=== PATIENT | female | born 1950 | race Caucasian/White ===

== ENCOUNTER 2017-07-26 05:28 | Day surgery (SDC) | payer MEDICARE, OTHER ==
[~2017-07-26] VITALS: Ht 154.9 cm; Wt 96.4 kg
[2017-07-26] MEDS ORDERED: IOHEXOL 350 MG/ML 50 ML BTL (for Cath Lab) OTHER ONE (05:29)
[2017-07-26] MEDS ORDERED: IOHEXOL 350 MG/ML 100 ML BTL (for Cath Lab) OTHER ONE (05:29)
[2017-07-26] MEDS ORDERED: ASPI-516 CHEW (05:47)
[2017-07-26] MEDS ORDERED: MELO15TA20 PO (05:47)
[2017-07-26] MEDS ORDERED: OMEGCAP PO (05:47)
[2017-07-26] MEDS ORDERED: LISI10TA PO (05:47)
[2017-07-26] MEDS ORDERED: FERR325T18 PO (05:47)
[2017-07-26] MEDS ORDERED: SULF500T3 PO (05:47)
[2017-07-26] MEDS ORDERED: GABA300C5 PO (05:47)
[2017-07-26] MEDS ORDERED: AMLO5TAB2 PO (05:47)
[2017-07-26] MEDS ORDERED: FOLI800T PO (05:47)
[2017-07-26] MEDS ORDERED: ATOR80TA45 PO (05:47)
[2017-07-26] MEDS ORDERED: INFL100P (05:47)
[2017-07-26] MEDS ORDERED: OMEP20TA93 PO (05:47)
[2017-07-26] MEDS ORDERED: PHEN-524 PO (05:47)
[2017-07-26] MEDS ORDERED: CITA40TA4 PO (05:47)
[2017-07-26] MEDS ORDERED: METO50TA PO (05:47)
[2017-07-26] MEDS ORDERED: ISOS30TA3 PO (05:47)
[2017-07-26] MEDS ORDERED: MULTTAB67 PO (05:47)
[2017-07-26] MEDS ORDERED: VITA250T3 PO (05:47)
[2017-07-26] MEDS ORDERED: NS 1000P @30 MLS/HR (KVO) IV SCH (06:00)
[2017-07-26] MEDS ORDERED: ASPIRIN 325 MG TAB PO SCH (06:00)
[2017-07-26 06:09] VITALS: BP 156/77; PULSE 77; RESP 18; TEMP 98.4; O2SAT 94
[2017-07-26] MEDS ORDERED: ASPIRIN 81 MG CHEW TAB ONE (06:13)
[2017-07-26 06:18] LABS: AUTOMATED NEUTROPHIL # 4.4 TH/MM3 (1.8-7.7); BASOPHIL % 0.4 % (0.0-2.0); EOSINOPHIL # 0.1 TH/MM3 (0-0.4); EOSINOPHIL % 1.4 % (0.0-4.0); HEMATOCRIT 33.4 % (35.0-46.0); LYMPH % 32.4 % (9.0-44.0); LYMPHOCYTE # 2.5 TH/MM3 (1.0-4.8); MEAN CELL VOLUME 75.4 FL (80.0-100.0); MEAN CORPUSCULAR HEMOGLOBIN 24.7 PG (27.0-34.0); MEAN CORPUSCULAR HGB CONC 32.8 % (32.0-36.0); MEAN PLATELET VOLUME 8.7 FL (7.0-11.0); MONO % 8.4 % (0.0-8.0); MONOCYTE # 0.6 TH/MM3 (0-0.9); NEUT % 57.4 % (16.0-70.0); PLATELET COUNT 231 TH/MM3 (150-450); RED BLOOD COUNT 4.43 MIL/MM3 (4.00-5.30); RED CELL DISTRIBUTION WIDTH 16.3 % (11.6-17.2); WHITE BLOOD COUNT 7.7 TH/MM3 (4.0-11.0)
[2017-07-26 06:31] LABS: INTERNATIONAL NORMALIZED RATIO 1.1 RATIO; PROTHROMBIN TIME - PATIENT 11.6 SEC (9.8-11.6)
[2017-07-26 06:32] LABS: CALCIUM 9.2 MG/DL (8.5-10.1); CREATININE 0.74 MG/DL (0.50-1.00)
[2017-07-26] MEDS ORDERED: HEPARIN-NS/PF INJ 1,000 ML ONE (06:46)
[2017-07-26] MEDS ORDERED: HEPARIN SODIUM - IV 10,000 UNITS/10 ML VIAL ONE (07:11)
[2017-07-26] MEDS ORDERED: MIDAZOLAM HCL 2 MG/2 ML VIAL ONE (07:11)
[2017-07-26] MEDS ORDERED: VERAPAMIL HCL 5 MG/2 ML VIAL ONE (07:11)
[2017-07-26] MEDS ORDERED: TICAGRELOR 90 MG TAB PO ONE (08:59)
--- NOTE | 2017-07-26 09:12 | CATHPROC ---
[facility] HIS Report Study Information Study Number Admission Scheduled Start Study Start [id number] Jul 26 2017 5:28AM 07/26/2017 Jul 26 2017 7:08AM [place] Service Cardiac Catheterization Admit Source Facility Department Other [facility] - Plant Tender Physician and Clinical Staff Initial MD Davidson, Major Cert Occupational Therapy Assterasmo Glass RN, Remigio Swanson cathlab, cathlab Recorder Harsh Dunn RCIS(BS) Scrub Maddi Green,RT(R) Procedures Performed Procedure Location (Site) Vessel Name Coronary Angiograms LCA Left Coronary Coronary Angiograms RCA Right Coronary Drug Eluting Inflatio OM1 Mid CIRC Drug Eluting Inflatio RCA Mid Right Coronary L Heart Cath PTCA RCA Mid Right Coronary Wire insertion CIRC Mid CIRC Wire insertion Radial (left) Radial Art. Equipment Time Hand Ironer Description Size Mfg Part Number Used/Scraped [id number] 08:05 [employer] WIRE, ASAHI PROWATER 180CM 180CM Used *[id number] WIRE, BALANCE MIDDLEWEIGHT [id number] 08:21 [employer] 190CM Used 190CM *[id number] WIRE, BALANCE MIDDLEWEIGHT [id number] 08:48 [employer] 190CM Used 190CM *[id number] TRANSDUCER, TRUWAVE [id number] 07:11 V[employer]EG[employer] IQBAL * Used W/STOCKCOCK *[id number] 670-130-00 *[id number] 670-034-00 *0730216 670-034-00 *4198564 534-521T *[id number] 534-521T *5161502 670-052-00 *[id number] 838539 07:11 MALLINCKROD[employer] SYRINGE, ANGIOMAT 150ML 150ML *[id number] Used 2SUB [id number] 07:11 [email or web address] INDUSTRIES PACK, CCL CUSTOM * Used *[id number] 07:11 [employer] SUPPORT, ARTERIAL ADULT 31040 *[id number] Used [id number] 07:11 MED[employer] PACER PEN, SKIN DUAL W/ RULER * Used *[id number] 08:32 [employer] BALLOON, 3.0 X 12MM EUPHORA 12MM Used *[id number] [id number] 08:01 [employer] JL 4.0 DXTERITY CATHETER FR 5 Used *[id number] 08:52 [employer] STENT, 2.75 15MM ROSA M 2.75 15MM Used *[id number] 08:36 [employer] STENT, 3.5 15MM ROSA M 3.5 15MM Used *[id number] [id number] 08:20 [employer] MEDICAL 30 FERNANDA INDEFLATOR Used *[id number] BAND, RADIAL COMPRESSION TR [id number] 08:59 [employer] MEDICAL 29CM Used LARGE 29 *7964901 [id number] 07:11 [employer] WIRE, EXCHANGE 260CM 3MMJ 260CM Used *[id number] 07:11 [employer] MANIFOLD, 4 PORT * Used *[id number] 07:11 [employer] OMNIPAQUE, 350 MG, 100ML 100ML [id number] Used [id number] 07:11 [employer] BLANKET,WARM AIR CCL * Used *[id number] 07:11 [employer] JELCO NEEDLE 4056 *7864718 Used SHEATH, FR6 TRANSRADIAL [id number] 07:11 [employer] FR 6 Used SLENDER 10CM *[id number] Equipment Model, Serial, Lot Number and Expiration Data Description Model Number Serial Number Lot Number Expiration Date JL 4.0 DXTERITY CATHETER [id number] 02-24-2020 STENT, 2.75 15MM ROSA M [id number] 03-16-2019 STENT, 3.5 15MM ROSA M [id number] 01-18-2019 History: Current Medications Medication Dosage/Unit Route Frequency Last Date/Time Taken Statins (any) Beta Arya ASA History: Allergies Allergy Reaction No Known Allergies History: Risk Factors Family History of Hypertension Dyslipidemia Previous GA Previous Heart Failure Premature CAD Yes No No No No Prior Valve Prior PCI Prior CABG Surgery No No No Cerebrovascular Peripheral Artery Chronic Lung On Dialysis Diabetes Disease Disease Disease No Yes No Yes No History: Stress Tests Stress or Imaging Studies Performed Yes Standard Exercise Stress Test No Stress Echo No Stress Test SPECT Stress Test SPECT Result Stress Test SPECT Ischemia Risk/Extent Yes Positive Intermediate Stress Test CMR No Cardiac CTA Coronary Calcium Score No No History: Other Disease Selection Items HTN History: Other Current Smoker Method Quit Packs a Day Years Used Pack Years No Cigarettes 20 Years Ago 2 25 50 Labs Hgb (g/dl) Hct (%) WBC (l/cumm) Platelets (thousands) 11.60-17.00 35.00-51.00 4.00-11.00 150.00-450.00 11.0 33.4 7.7 231 Glucose (mg/dl) BUN (mg/dl) Creatinine (mg/dl) BUN:Creatinine (1:x) 74.00-106.00 7.00-18.00 0.50-1.30 10.00-20.00 95 20 0.7 28.6 Na (meq/l) K (meq/l) 136.00-145.00 3.50-5.10 137 4.3 INR (PTT:PT) 0.90-1.10 1.1 CPK-MB (ng/ML) 0.50-3.60 Not Drawn Medication Medication Total Dose (Bolus/Oral) Medication Total Dosage/Unit 1% XYLOCAINE 10 mL HEPARIN 5000 units NTG (IC) 100 mcg RADIAL COCKTAIL 10 mL (Bolus) VERSED 2 mg Medications (Bolus/Oral) Medication Time Given Dosage/Unit Administered By Reason VERSED 07/26/2017 7:51:16 AM 2 mg Remigio Glass RN Patient arrived on 2 mg VERSED given by Remigio Glass RN in Left Wrist via Peripheral IV. Ordered by Major Agudelo. 1% XYLOCAINE 07/26/2017 7:51:53 AM 10 mL Major Davidson Patient arrived on 10 mL 1% XYLOCAINE given by Major Davidson in Right Radial via Subcutaneous. Ordere d by Major Davidson. Ntg 200mcg Verapamil 2.5mg Heparin RADIAL COCKTAIL 07/26/2017 7:57:54 AM 5 mL (Bolus) Major Davidson 2500U 5 mL (Bolus) RADIAL COCKTAIL given in lab by Major Davidson in Left Radial via Radial. Using [Solution Name]. Reason: Ntg 200mcg Verapamil 2.5mg Heparin 2500U. HEPARIN 07/26/2017 8:28:42 AM 5000 units Remigio Glass RN 5000 units HEPARIN given in lab by Remigio Glass RN in Right Wrist via Peripheral IV. Ordered by Major Ferrara. NTG (IC) 07/26/2017 8:35:01 AM 100 mcg Maddi Green 100 mcg NTG (IC) given in lab by Maddi Green, RT(R) via Intra-coronary. Ordered by Major Davidson. Ntg 200mcg Verapamil 2.5mg Heparin RADIAL COCKTAIL 07/26/2017 8:44:31 AM 5 mL (Bolus) Major Davidson 2500U 5 mL (Bolus) RADIAL COCKTAIL given in lab by Major Davidson in Left Radial via Radial. Using [Solution Name]. Reason: Ntg 200mcg Verapamil 2.5mg Heparin 2500U. Medication (Drip) Medication Time Given Dosage/Unit Concentration/Unit Diluent (ml) Solution IV Solutions 07/26/2017 7:10:18 AM 0 mL (IV) 500 NaCl .9 Patient arrived on IV Solutions given by cathlab, cathlab in Left Wrist via Peripheral IV. Pump/Drip Flow = 20 ml/hr using NaCl .9. Ordered by Major Davidson. Initial Case Assessment Cardiovascular HR Rhythm NIBP Chest Pain 63 NSR 121/65 0 Edema Present Skin color Skin None Normal Warm Dry Circulatory - Right Pulses Dorsalis Pedis Femoral Radial 2 1 2 Scale (0,1,2,3,4,d) Circulatory - Left Pulses Dorsalis Pedis Femoral Radial 2 1 2 Scale (0,1,2,3,4,d) Neurological State Oriented to time-place- Moves all extremities person Respiration - General Respiration Rate SpO2 (%) (B/min) 15 96 Initial Case Assessment Cardiovascular HR Rhythm NIBP Chest Pain 67 NSR 104/52 0 Edema Present Skin color Skin None Normal Warm Dry Circulatory - Right Pulses Dorsalis Pedis Femoral Radial 2 1 2 Scale (0,1,2,3,4,d) Circulatory - Left Pulses Dorsalis Pedis Femoral Radial 2 1 2 Scale (0,1,2,3,4,d) Neurological State Oriented to time-place- Moves all extremities person Respiration - General Respiration Rate SpO2 (%) (B/min) 15 96 Chronological Log Time Study Chronological Log 7:09:57 Patient arrived via Bed. 7:09:58 Patient Name, D.O.B, / Armband Verified By R.N. 7:09:59 Pre-op and post- op instructions given; patient acknowledges understanding of instructions. 7:10:00 Verbal Stimulation=2 Physical Stimulation=2 Airway=2 Respiration=2 TOTAL=8. (0=absent, 1=li mited, 2=present) 7:10:02 Presedation assessment performed by Plant Tender RN. 7:10:03 Allens test performed on the right and left radial and ulnar artery. POSITIVE. 7:10:13 Immediate Presedation assesment performed by physician. 7:10:14 Patient has been NPO for More than 6Hrs. 7:10:14 Skin Breakdown- none per patient 7:10:15 Patient Warmer Placed on the Table. 7:10:16 Yanet Prominences Protected 7:10:18 A # 20 IV was noted in the Wrist (left). Grade = 0 Patient arrived on IV Solutions given by cathlab, cathlab in Left Wrist via Peripheral IV. Pump /Drip Flow = 20 ml/hr 7:10:18 using NaCl .9. Ordered by Major Davidson. 7:10:19 History and physical on the chart or being dictated. Assessment: Initial Case, HR=63 BPM, Rhythm=NSR, YAHI=228/65 mmhg, Chest Pain=0, Edema=None, Color=Normal, Skin = Warm, Dry Right Pulses: Osman Ped=2, Femoral=1, Radial=2 7:12:00 Left Pulses: Osman Ped=2, Femoral=1, Radial=2 Neurological: Ox3, TODD Respiration: Resp=15 B/min, SpO2=96 % Vitals capture started with the following parameters, Patient=Adult, Interval=5 min, Initial Pre icjkd=440 mmHg, 7:22:22 Deflation Rate=5 mmHg, Cuff placed on Left Arm 7:23:06 HR=63 bpm, SEBI=710/65 mmhg, SpO2=96.0 %, Resp=15 B/min, Pain=0, Harmony=10, Zhang=2 7:25:58 MD arrived. 7:28:03 HR=60 bpm, UKDW=929/55 mmhg, SpO2=93.0 %, Resp=12 B/min, Pain=0, Harmony=10, Zhang=2 7:29:01 Contrast Scanned 7:29:02 Immediate Presedation assesment performed by physician. 7:29:05 IV in left wrist removed, pressure applied, hemostasis achieved. 7:33:41 HR=63 bpm, TKWY=091/63 mmhg, SpO2=95.0 %, Resp=14 B/min, Pain=0, Harmony=10, Zhang=2 7:35:24 IV #20 started in R. wrist by Robin Glass RN 7:35:25 A # 20 IV was noted in the Wrist (right). Grade = 0 7:36:33 Reference ECG taken 7:38:30 RM=934 bpm, YLZU=743/66 mmhg, SpO2=95.0 %, Resp=15 B/min, Pain=0, Harmony=10, Zhang=2 7:42:24 Left Radial and groin(s) prepped with 2% chlorhexidine, and draped after a 3 min. waiting ti me. 7:43:00 HR=64 bpm, LAGR=527/58 mmhg, SpO2=95.0 %, Resp=13 B/min, Pain=0, Harmony=10, Zhang=2 7:48:01 HR=61 bpm, FXFL=836/57 mmhg, SpO2=95.0 %, Resp=16 B/min, Pain=0, Harmony=10, Zhang=2 Time Out. Correct patient, correct procedure, correct physician, power injector not loaded with contrast with surgical 7:49:12 team present. Time Out Concurred by MD and individual staff in procedure. 7:49:48 Reference ECG taken 7:50:01 Pressure channel 1 zeroed. 7:50:05 Case Start 7:51:16 Patient arrived on 2 mg VERSED given by Remigio Glass RN in Left Wrist via Peripheral IV. Ord ered by Major Davidson. Patient arrived on 10 mL 1% XYLOCAINE given by Major Davidson in Right Radial via Subcutaneous. O rdered by Stuart, 7:51:53 Major. 7:53:00 HR=69 bpm, XVIQ=978/57 mmhg, SpO2=93 %, Resp=18 B/min, Pain=0, Harmony=10, Zhang=2 7:57:32 Access site was Left Radial Artery. A SHEATH, FR6 TRANSRADIAL SLENDER 10CM FR 6 was advanced into the Radial (left) using the Percut aneous 7:57:40 technique. 5 mL (Bolus) RADIAL COCKTAIL given in lab by Major Davidson in Left Radial via Radial. Using [Liza ution Name]. Reason: 7:57:54 Ntg 200mcg Verapamil 2.5mg Heparin 2500U. 7:58:03 HR=68 bpm, KCBZ=567/48 mmhg, SpO2=95.0 %, Resp=16 B/min, Pain=0, Harmony=10, Zhang=2 A JL 4.0 DXTERITY CATHETER FR 5 was advanced over a wire. OMNIPAQUE, 350 MG, 100ML 100ML was use d for 8:01:12 injections. 8:03:00 HR=25 bpm, LQAF=497/53 mmhg, SpO2=93.0 %, Resp=17 B/min, Pain=0, Harmony=10, Zhang=2 8:05:59 A WIRE, ASAHI PROWATER 180CM 180CM was inserted via Radial (left). 8:06:40 Wire removed 8:06:41 A WIRE, EXCHANGE 260CM 3MMJ 260CM was inserted via Radial (left). 8:07:00 Wire removed 8:07:59 HR=66 bpm, DIQZ=885/56 mmhg, SpO2=95.0 %, Resp=17 B/min, Pain=0, Harmony=10, Zhang=2 8:10:23 The LCA was injected and visualized at various angles. OMNIPAQUE, 350 MG, 100ML 100ML used. Recorded Pressure: Ao, HR=60, Condition=Condition 1 8:10:51 (Aorta) Ao 88/40/57 8:13:03 HR=63 bpm, NIBP=99/51 mmhg, SpO2=97.0 %, Resp=16 B/min, Pain=0, Harmony=10, Zhang=2 After removing the current catheter a JR 4.0 INFINITI CATHETER FR 5 was advanced over a WIRE, EX CHANGE 260CM 8:14:34 3MMJ 260CM. 8:18:00 HR=63 bpm, KIJL=755/55 mmhg, SpO2=93.0 %, Resp=16 B/min, Pain=0, Harmony=10, Zhang=2 8:18:31 The RCA was injected and visualized at various angles. OMNIPAQUE, 350 MG, 100ML 100ML used. After removing the current catheter a AL .75 GUIDE CATHETER FR 6 was advanced over a WIRE, EXCHA NGE 260CM 8:19:38 3MMJ 260CM. 8:23:03 HR=60 bpm, ERHB=605/55 mmhg, SpO2=94.0 %, Resp=16 B/min, Pain=0, Harmony=10, Zhang=2 After removing the current catheter a 3DRC GUIDE CATHETER FR 6 was advanced over a WIRE, EXCHANG E 260CM 8:26:02 3MMJ 260CM. 8:28:04 HR=62 bpm, NIBP=99/50 mmhg, SpO2=97.0 %, Resp=16 B/min, Pain=0, Harmony=10, Zhang=2 8:28:42 5000 units HEPARIN given in lab by Remigio Glass RN in Right Wrist via Peripheral IV. Ordered by Major Davidson. 8:29:45 A WIRE, BALANCE MIDDLEWEIGHT 190CM 190CM was inserted via Radial (left). 8:30:37 Interventional wire has crossed the lesion A BALLOON, 3.0 X 12MM EUPHORA 12MM was inserted over WIRE, BALANCE MIDDLEWEIGHT 190CM 190CM via the 8:31:20 RCA Mid. 8:33:01 HR=69 bpm, NHNQ=255/51 mmhg, SpO2=95.0 %, Resp=16 B/min, Pain=0, Harmony=10, Zhang=2 A BALLOON, 3.0 X 12MM EUPHORA 12MM over a WIRE, BALANCE MIDDLEWEIGHT 190CM 190CM in the RCA Mid was 8:33:37 inflated using a 30 FERNANDA INDEFLATOR at 12 fernanda for 30 sec. A BALLOON, 3.0 X 12MM EUPHORA 12MM over a WIRE, BALANCE MIDDLEWEIGHT 190CM 190CM in the RCA Mid was 8:34:08 inflated using a 30 FERNANDA INDEFLATOR at 12 fernanda for 14 sec. 8:35:01 100 mcg NTG (IC) given in lab by Maddi Green RT(R) via Intra-coronary. Ordered by Major Davidson. 8:35:14 Balloon Removed. A STENT, 3.5 15MM ROSA M 3.5 15MM was advanced through a 3DRC GUIDE CATHETER FR 6 over a WIRE, BAL ANCE 8:37:15 MIDDLEWEIGHT 190CM 190CM. 8:38:04 HR=62 bpm, HUDD=616/51 mmhg, SpO2=96.0 %, Resp=16 B/min, Pain=0, Harmony=10, Zhang=2 A STENT, 3.5 15MM ROSA M 3.5 15MM was deployed using a 30 FERNANDA INDEFLATOR at 12 atmospheres for 30 seconds in 8:38:48 the RCA Mid. 8:41:01 Delivery device removed 8:41:21 Wire removed 8:42:05 Activated Clotting Time Drawn 8:43:03 HR=65 bpm, NIBP=99/49 mmhg, SpO2=95.0 %, Resp=16 B/min, Pain=0, Harmony=10, Zhang=2 5 mL (Bolus) RADIAL COCKTAIL given in lab by Major Davidson in Left Radial via Radial. Using [Liza ution Name]. Reason: 8:44:31 Ntg 200mcg Verapamil 2.5mg Heparin 2500U. After removing the current catheter a XB 3.0 GUIDE CATHETER FR 6 was advanced over a WIRE, EXCHA NGE 260CM 8:45:33 3MMJ 260CM. 8:47:34 A WIRE, BALANCE MIDDLEWEIGHT 190CM 190CM was inserted via CIRC Mid. 8:48:04 HR=63 bpm, NIBP=95/42 mmhg, SpO2=93.0 %, Resp=16 B/min, Pain=0, Harmony=10, Zhang=2 8:48:37 ACT (Normal Range 90-180) = 370 8:50:12 Interventional wire has crossed the lesion Vitals capture started with the following parameters, Patient=Adult, Interval=5 min, Initial Pre vahtu=912 mmHg, 8:51:26 Deflation Rate=5 mmHg, Cuff placed on Left Arm 8:51:55 HR=66 bpm, NIBP=96/53 mmhg, SpO2=95.0 %, Resp=16 B/min, Pain=0, Harmony=10, Zhang=2 A STENT, 2.75 15MM ROSA M 2.75 15MM was deployed using a 30 FERNANDA INDEFLATOR at 18 atmospheres for 3 0 seconds 8:53:25 in the OM1 Mid. 8:55:07 Delivery device removed 8:56:06 Wire removed 8:56:07 Catheter was removed 8:56:13 Case End 8:56:59 HR=70 bpm, KVHM=030/52 mmhg, SpO2=96.0 %, Resp=39 B/min, Pain=0, Harmony=10, Zhang=2 Assessment: Initial Case, HR=67 BPM, Rhythm=NSR, UHOI=683/52 mmhg, Chest Pain=0, Edema=None, Color=Normal, Skin = Warm, Dry Right Pulses: Osman Ped=2, Femoral=1, Radial=2 8:58:31 Left Pulses: Osman Ped=2, Femoral=1, Radial=2 Neurological: Ox3, TODD Respiration: Resp=15 B/min, SpO2=96 % 8:58:40 Catheter(s) removed without difficulty Radial Compression Device Used. 12 mLs of air placed in BAND, RADIAL COMPRESSION TR LARGE 29 2 9CM. Affected 8:58:41 hand 95 % O2 saturation. 8:58:56 Sterile dressing applied to site 8:58:56 No case complications noted. 8:58:57 Cine recording checked. 8:58:59 Holding Area notified of successful intervention. 8:58:59 Bedside Report will be given. 8:59:00 Implantable Device card placed in patient's chart. 8:59:02 Contrast Scanned 8:59:03 Verbal Stimulation=2 Physical Stimulation=2 Airway=2 Respiration=2 TOTAL=8. (0=absent, 1=l imited, 2=present) 8:59:10 A Left Heart Cath was performed. 9:02:00 HR=72 bpm, WPTJ=350/59 mmhg, SpO2=96.0 %, Resp=16 B/min, Pain=0, Harmony=10, Zhang=2 End Study - Contrast Media Used In Study Contrast Total Opened (mL) Total Used (mL) Total Wasted (mL) Omnipaque 140 140 0 End Study - Maximum Contrast Load Max Contrast Load (mL) 688.6 End Study - Radiation Exposure Fluoro Time (minutes) 16.8 End Study - Patient Disposition Complications Transferred To Interventional Outcome No Plant Tender Holding No attempt made
[2017-07-26] MEDS ORDERED: SODIUM CHLOR 0.9% 1000 ML INJ 1,000 ML IV SCH (09:30)
[2017-07-26] MEDS ORDERED: ACETAMINOPHEN 325 MG TAB PO PRN (09:30)
[2017-07-26] MEDS ORDERED: BACITRACIN OINT 0.9 GM PKT TOP ONE (09:30)
[2017-07-26] MEDS ORDERED: oxyCODONE/ACETAMINOPHEN 10 MG/325 MG TAB PO PRN (09:30)
[2017-07-26] MEDS ORDERED: MISC INFORMATION XX ONE (09:30)
[2017-07-26] MEDS ORDERED: oxyCODONE/ACETAMINOPHEN 5 MG/325 MG TAB PO PRN (09:30)
--- NOTE | 2017-07-26 09:38 | MA ---
cc: DOTTIE RAO M.D., JEFFREY DATE 07/26/2016 PROCEDURE PERFORMED Coronary angiography, balloon angioplasty and stenting of the mid right coronary artery, stenting of the obtuse marginal branch of the left circumflex coronary artery. APPROACH Left radial arterial approach. BRIEF HISTORY Hien Swain is a 66-year-old woman with class 3 angina and it has not been relieved despite antianginal medications. Nuclear stress test showed inferolateral ischemia. DESCRIPTION OF THE PROCEDURE The patient was brought to the cardiac equipment operator/laborer/supervisor in a fasting state. Access of the left radial artery with an Angiocath, but the wire would not feed. I held pressure. I went a few millimeters higher on the arm and this time accessed the left radial artery and was able to place a Terumo slender sheath. In trying to pass a catheter, there appeared to be a possible loop just below the elbow. Using an 0.014 wire, I was able to get into the subclavian vein with a left four Bart catheter. I imaged the left coronary artery with a left four Bart. I imaged the right coronary artery with a right four Bart. I opted to proceed with intervention. I started with an AL 0.75 guide, but was not able to engage the right and switched to a 3DRC guide which engage the right coronary artery adequately to permit intervention. 5000 units of heparin was administered with a therapeutic ACT achieved. I crossed the right coronary lesion with a BMW wire. I predilated it with a 3-0 balloon and then stented it with a 3.5 by Resolute [place] stent at 12 atmospheres with an outstanding angiographic result. The catheter, wire and guide were removed and exchanged to a XB 3.0 guiding catheter. This engaged the left coronary artery quite nicely. I then wired the obtuse marginal branch with a BMW wire. I direct stented utilizing a 2.75 x 15 mm Resolute [place] stent at 18 atmospheres with a superb angiographic result. The patient tolerated procedure well with no complications. The catheter was removed. The sheath was removed with a Terumo band placed. NOTE The procedure was performed using standard arterial cocktail in the left wrist. There were no complications. Estimated blood loss was 10 cc. FINDINGS 1. Hemodynamics. The aortic pressure was 88/40 with a mean of 57. 2. Coronary angiography. The left main coronary artery has about 10% irregularity. It bifurcates into the LAD and circumflex vessels. The LAD gives off one major diagonal branch which has about 25% ostial disease. The mid-LAD has about 30% irregularities. The LAD stops short of the apex. The circumflex artery has an eccentric 35% proximal stenosis and then at the origin of a very large obtuse marginal branch, there is a 90% stenosis. The right coronary artery is dominant. This vessel has a discrete 95% mid stenosis and then some mild distal irregularity. There are also mnuv-gl-bikpr collaterals noted. It is also mentioned that distal circumflex is occluded after the obtuse marginal branch with collateral filling to a very small posterolateral branch and distal circumflex vessel. RESULTS OF INTERVENTION Following stenting of the mid right coronary artery, the 95% stenosis has been reduced to 0%. Following stenting of the obtuse marginal branch, the 90% stenosis has been reduced to 0%. KELLY-III flow is 3 pre and post for both lesions. CONCLUSIONS 1. Slightly reduced arterial pressure. 2. Critical two-vessel coronary artery disease. 3. Successful drug-eluting stent placement of both vessels. PLAN I am going to use 81 mg aspirin and Brilinta. I am choosing Brilinta because of her use of PPI to minimize drug interactions. Cannot use Effient because she has had a prior stroke. Anticipate discharge home this evening. MD ANGELIA Sampson/SARAH /9:00 AM /9:10 AM
[2017-07-26] MEDS ORDERED: BRIL90TA PO (14:44)
--- NOTE | 2017-07-26 16:45 | EKG ---
Date Performed: 07/26/2017 Time Performed: 06:18:08 PTAGE: 66 years EKG: Sinus rhythm . Leftward axis Inferior T wave changes are nonspecific Borderline ECG NO PREVIOUS TRACING DOCTOR: Shonda Fish Interpretating Date/Time 07/26/2017 16:45:23
[2017-07-26] MEDS ORDERED: TICAGRELOR 90 MG TAB PO SCH (21:00)
[2017-07-27] MEDS ORDERED: ASPIRIN 81 MG CHEW TAB PO SCH (09:00)
--- NOTE | 2017-07-27 12:45 | EKG ---
Date Performed: 07/26/2017 Time Performed: 13:10:42 PTAGE: 66 years EKG: Sinus rhythm . Left axis deviation Possible inferior infarct - age undetermined Anterior T wave changes are nonspe cific Abnormal ECG PREVIOUS TRACING : 07/26/2017 06.18 DOCTOR: Sunil Garcia Interpretating Date/Time 07/27/2017 12:43:35
== END 2017-07-26 15:20 | disposition home or self-care (01) ==
LOC: HDIC 05:28 → HDOC 05:28
PROVIDERS: ATTEND Internal Medicine Cardiovascular Disease
DX: I25.119 Atherosclerotic heart disease of native coronary artery with unspecified angina pectoris (principal); I10 Essential (primary) hypertension; R94.31 Abnormal electrocardiogram [ECG] [EKG]; I63.9 Cerebral infarction, unspecified; E78.2 Mixed hyperlipidemia; E88.81 Metabolic syndrome and other insulin resistance; Q21.1 Atrial septal defect; Z01.818 Encounter for other preprocedural examination
CPT/HCPCS: 80048; 85002; 85025; 85610; 85730; 92928; 92929; 93005; 93458; 99152; 99153; C1725; C1769; C1874; C1887; C1893; J1644; J2250; 92934; Q9967